=== PATIENT | male | born 1995 | race Caucasian/White ===

== ENCOUNTER 2017-05-01 01:11 | Emergency (ER) | payer SELFPAY ==
[~2017-05-01] VITALS: Ht 172.7 cm; Wt 59.0 kg
[2017-05-01 01:20] VITALS: Ht 172.7 cm; Wt 59.0 kg
[2017-05-01 07:42] VITALS: BP 118/57
== END 2017-05-01 07:42 | disposition home or self-care (01) ==
LOC: ED 01:11
DX: F10.129 Alcohol abuse with intoxication, unspecified (principal)
CPT/HCPCS: J7030